=== PATIENT | female | born 1980 | race Two or more races ===

== ENCOUNTER 2020-04-09 05:35 | Day surgery (SDC) | payer OTHER ==
[~2020-04-09 05:35] MED LIST: CLONAZEPAM0.5 MG PO; MAXIMUM D3325 MCG PO; PROTONIX40 MG PO; WELLBUTRIN XL300 MG PO
[2020-04-09] MEDS ORDERED: MACROBID 100 M100 MG PO (10:12)
[2020-04-09] MEDS ORDERED: ULTRACET PO (10:12)
== END 2020-04-09 13:20 | disposition home or self-care (01) ==
LOC: CIR.AMB 05:35
PROVIDERS: ATTEND Obstetrics & Gynecology Gynecology
DX: N39.3 Stress incontinence (female) (male) (principal); Z20.822 Contact with and (suspected) exposure to COVID-19
CPT/HCPCS: 57288; C1771